=== PATIENT | male | born 1995 | race Caucasian/White ===

== ENCOUNTER 2020-11-08 07:19 | Emergency (ER) | payer MEDICAID ==
[~2020-11-08] VITALS: Ht 172.7 cm; Wt 66.0 kg
[2020-11-08 07:21] VITALS: BP 132/76
[2020-11-08 08:19] LABS: BASOPHILS % 0.4 % (0.0-2.0); EOSINOPHILS % 0.6 % (0.0-5.0); HEMATOCRIT. 45.7 % (42.0-52.0); HEMOGLOBIN. 15.4 g/dL (14.0-18.0); LYMPHOCYTES % 20.3 % (20.0-50.0); MEAN CORPUSCULAR HEMOGLOBIN 29.9 pg (28.0-32.0); MEAN CORPUSCULAR VOLUME 89.1 fL (80.0-94.0); MEAN PLATELET VOLUME 7.8 fl (7.4-10.4); MONOCYTES % 5.2 % (2.0-8.0); NEUTROPHILS % 73.5 % (40.0-76.0); PLATELET 394 x1000/uL (130-400); RED BLOOD CELL COUNT 5.13 mill/uL (4.7-6.1); RED CELL DISTRIBUTION WIDTH 13.1 % (11.6-14.6)
[2020-11-08 08:27] LABS: CHLORIDE 105 mEq/L (98-107)
== END 2020-11-08 09:43 | disposition home or self-care (01) ==
LOC: ER 07:28
DX: G40.909 Epilepsy, unspecified, not intractable, without status epilepticus (principal); F11.10 Opioid abuse, uncomplicated; F17.210 Nicotine dependence, cigarettes, uncomplicated
CPT/HCPCS: 36415; 80053; 85025; 93005; 99284

== ENCOUNTER 2022-05-18 20:34 | Emergency (ER) | payer MEDICAID, OTHER ==
[~2022-05-18] VITALS: Ht 172.7 cm; Wt 72.0 kg
[2022-05-19] MEDS ORDERED: TETANUS, DIPHTHERIA, PERTUSSIS VAC/PF 0.5ML (>10YR OLD) IM ONE (01:45)
[2022-05-19] MEDS ORDERED: HYDROCODONE/ACETAMINOPHEN 10/325MG TABLET PO ONE (01:45)
[2022-05-19] MEDS ORDERED: LIDOCAINE HCL/EPINEPHRINE 1%-EPI 1:100,000 50 ML VIAL INFIL ONE (01:45)
[2022-05-19] MEDS ORDERED: MORPHINE SULFATE 4 MG/ML CPJ (NOT FOR IM USE) IV ONE (04:30)
[2022-05-19] MEDS ORDERED: CEPH500C2 MT (04:32)
[2022-05-19] MEDS ORDERED: IBUP-2029 MT (04:32)
[2022-05-19 04:45] VITALS: BP 133/66
== END 2022-05-19 05:30 | disposition home or self-care (01) ==
LOC: ER 20:34
DX: S51.011A Laceration without foreign body of right elbow, initial encounter (principal); S50.851A Superficial foreign body of right forearm, initial encounter; S50.811A Abrasion of right forearm, initial encounter; G40.909 Epilepsy, unspecified, not intractable, without status epilepticus; F12.10 Cannabis abuse, uncomplicated; F11.10 Opioid abuse, uncomplicated; Z98.890 Other specified postprocedural states; V43.62XA Car passenger injured in collision with other type car in traffic accident, initial encounter; Y93.89 Activity, other specified; Y92.488 Other paved roadways as the place of occurrence of the external cause
CPT/HCPCS: 12001; 70450; 71045; 73030; 73090; 90471; 90715; 96374; 99284; J2270; Z7610

== ENCOUNTER 2022-11-29 10:13 | Emergency (ER) | payer MEDICAID ==
[~2022-11-29] VITALS: Ht 177.8 cm; Wt 80.0 kg
[~2022-11-29 10:13] MED LIST: CEPH500C2 MT; IBUP-2029 MT
[2022-11-29] MEDS ORDERED: SODIUM CHLORIDE 0.9% 1,000 ML IV ONE (10:30)
[2022-11-29 10:48] LABS: BASOPHILS % 0.5 % (0.0-2.0); EOSINOPHILS % 0.4 % (0.0-5.0); HEMATOCRIT. 41.2 % (42.0-52.0); HEMOGLOBIN. 13.9 g/dL (14.0-18.0); LYMPHOCYTES % 23.3 % (20.0-50.0); MEAN CORPUSCULAR HEMOGLOBIN 29.8 pg (28.0-32.0); MEAN CORPUSCULAR VOLUME 88.4 fL (80.0-94.0); MEAN PLATELET VOLUME 7.4 fl (7.4-10.4); MONOCYTES % 5.2 % (2.0-8.0); NEUTROPHILS % 70.6 % (40.0-76.0); PLATELET 499 x1000/uL (130-400); RED BLOOD CELL COUNT 4.66 mill/uL (4.7-6.1); RED CELL DISTRIBUTION WIDTH 13.3 % (11.6-14.6)
[2022-11-29 10:53] LABS: CHLORIDE 106 mEq/L (98-107)
[2022-11-29 11:01] LABS: CREATINE KINASE 98 IU/L (39-308); ETHANOL BLOOD < 10 mg/dL
[2022-11-29 11:27] LABS: CLARITY URINE CLEAR (CLEAR); COLOR URINE YELLOW (YELLOW); KETONES URINE TRACE (NEGATIVE); LEUKOCYTE ESTERASE URINE NEGATIVE (NEGATIVE); NITRITE URINE NEGATIVE (NEGATIVE); OCCULT BLOOD URINE TRACE (NEGATIVE); PROTEIN URINE 1+ (NEGATIVE); SPECIFIC GRAVITY URINE 1.024 (1.005-1.030)
[2022-11-29] MEDS ORDERED: POTASSIUM CHLORIDE 20MEQ TABLET SR PO ONE (11:30)
[2022-11-29 12:37] VITALS: BP 117/78
[2022-11-29 15:04] LABS: *AMPHETAMINES SCREEN URINE NEGATIVE (NEGATIVE); *BARBITURATES SCREEN URINE NEGATIVE (NEGATIVE); *BENZODIAZEPINES SCREEN URINE PRESUMTIVE POSITIVE (NEGATIVE); *COCAINE SCREEN URINE NEGATIVE (NEGATIVE); CANNABINOID URINE SCREEN PRESUMTIVE POSITIVE (NEGATIVE); METHADONE URINE SCREEN NEGATIVE (NEGATIVE); OPIATES URINE SCREEN NEGATIVE (NEGATIVE); PHENCYCLIDINE URINE SCREEN NEGATIVE (NEGATIVE)
== END 2022-11-29 12:39 | disposition home or self-care (01) ==
LOC: ER 10:13
DX: G40.909 Epilepsy, unspecified, not intractable, without status epilepticus (principal)
CPT/HCPCS: 36415; 80053; 80305; 80307; 80320; 80329; 81003; 82550; 83690; 84484; 85025; 93005; 96360; 99284; J7030; G0480

== ENCOUNTER 2023-11-17 10:05 | Emergency (ER) | payer MEDICAID, OTHER ==
[~2023-11-17] VITALS: Ht 172.7 cm; Wt 80.0 kg
[2023-11-17 10:11] VITALS: BP 136/68; PULSE 120; RESP 20; TEMP 98.5; O2SAT 100
== END 2023-11-17 10:15 | disposition home or self-care (01) ==
LOC: ER 10:05
DX: F11.90 Opioid use, unspecified, uncomplicated (principal)
CPT/HCPCS: 99283